=== PATIENT | male | born 1950 | race Caucasian/White ===

== ENCOUNTER → 2016-08-21 | Outpatient (CLI) | payer MEDICARE, OTHER ==
[~2016-08-21] MED LIST: ADULT LOW DOSE81 MG PO; AMARYL 2MG TABLE2 MG PO; CIPRO250 MG PO; JANUMET 50-1,01 EACH PO; LIPITOR TAB 2020 MG PO; MOBIC15 MG PO; MONOPRIL TAB 1010 MG PO; PLAVIX 75 MG TA75 MG PO; SERTRALINE HCL50 MG PO; TOPROL XL200 MG PO; TOUJEO SC; VYTORIN 10-401 EACH PO
== END ==
LOC: US 08-14 10:30
DX: R10.9 Unspecified abdominal pain (principal); N13.30 Unspecified hydronephrosis; K76.89 Other specified diseases of liver
CPT/HCPCS: 76700

== ENCOUNTER → 2016-09-02 | Outpatient (CLI) | payer MEDICARE, OTHER | LOC: CT 08:47 | DX: R10.9 Unspecified abdominal pain (principal) ==

== ENCOUNTER 2016-09-15 16:26 | Emergency (ER) | payer MEDICARE, OTHER ==
[2016-09-15 21:18] LABS: RED BLOOD COUNT 4.8 M/UL (4.20-5.50); WHITE BLOOD COUNT 12.8 K/UL (4.5-11.0)
== END 2016-09-16 00:03 | disposition home or self-care (01) ==
LOC: ER1 16:26
PROVIDERS: Emergency Medicine
DX: J18.9 Pneumonia, unspecified organism (principal); I10 Essential (primary) hypertension; Z79.82 Long term (current) use of aspirin; Z79.02 Long term (current) use of antithrombotics/antiplatelets; Z79.4 Long term (current) use of insulin; Z79.899 Other long term (current) drug therapy
CPT/HCPCS: 36415; 71010; 80053; 82550; 82553; 83874; 83880; 84484; 85025; 85379; 85610; 85730; 93005; 96360; 99285; J7030; J7050; Q9963

== ENCOUNTER → 2016-10-07 | Outpatient (CLI) | payer MEDICARE, OTHER | LOC: RAD 09:15 | DX: R07.89 Other chest pain (principal) | CPT/HCPCS: 71020 ==

== ENCOUNTER → 2022-01-09 | Outpatient (CLI) | payer OTHER | LOC: KOH-I 13:27 | DX: M25.571 Pain in right ankle and joints of right foot (principal) | CPT/HCPCS: 73610 ==

== ENCOUNTER → 2022-01-16 | Outpatient (CLI) | payer OTHER | LOC: KOH-I 08:50 | DX: M25.571 Pain in right ankle and joints of right foot (principal); G89.29 Other chronic pain; M25.471 Effusion, right ankle; M76.71 Peroneal tendinitis, right leg | CPT/HCPCS: 73721 ==